=== PATIENT | male | born 1935 | race Caucasian/White ===

== ENCOUNTER 2018-09-21 05:57 | Day surgery (SDC) | payer OTHER ==
[~2018-09-21 05:57] MED LIST: LOSARTAN-HCTZ1 EAC1 PO; SIMVASTATIN20 MG PO; SUPPORT-5001 EACH PO; ZETIA10 MG PO
== END 2018-09-21 10:45 | disposition home or self-care (01) ==
LOC: CIR.AMB 05:57
DX: M65.842 Other synovitis and tenosynovitis, left hand (principal)